=== PATIENT | male | born 1975 | race Caucasian/White ===

== ENCOUNTER → 2016-06-15 | Day surgery (SDC) | payer BC, OTHER ==
[2016-06-15] VITALS (13 sets, daily range): BP systolic 92–138; BP diastolic 42–79
[~2016-06-15] VITALS: Ht 182.9 cm; Wt 88.5 kg
[~2016-06-15] MED LIST: Alfentanil 2ml Inj ONE; Atropine Inj 1mg/10ml Syr IV PRN; Bacitracin 50000 Units Vial ONE; Bupivacaine w/Epi 0.5% 30ml Vial INJ ONE; D5 1/2NS 1,000 ML IV SCH; Dexamethasone 4mg/ml vial ONE; DiphenhydrAMINE 50mg/ml Inj IVP PRN; GENVOYA TABLET1 EACH PO; HYDROmorphone 1mg/ml Carpuject SUBQ PRN; HYZAAR 100-12.1 EACH ORAL; Hydromorphone 0.5mg/0.5ml inj IVP PRN; Ketorolac 30mg Inj IV PRN; Ketorolac 60mg Inj IV PRN; LORazepam Inj 2mg/ml 1ml IV PRN; LR 1000ml 1,000 ML IVLG SCH; LR 1000ml ONE; Labetalol 5mg/ml 20ml vial IV PRN; Lidocaine 1% MPF 10mg/ml 5ml ONE; Meperidine 25mg/ml Inj IV PRN; Metoclopramide 10mg/2ml Inj IVP PRN; Midazolam 2mg/2ml Inj IVP PRN; Midazolam 2mg/2ml Inj ONE; NS Irrig 1000ml ONE; Norco 5mg/325mg tab ORAL PRN; Norco 7.5mg/325mg tab ORAL PRN; Oxycodone/Acetaminophen 5-325 ORAL PRN; Propofol 10mg/ml 20ml IV ONE; Ropivacaine 5mg/ml Vial 20ml INJ ONE; Sterile Water Irrig 1000ml IRRIG ONE; Tylenol #3 tab (300mg/30mg) ORAL PRN; ceFAZolin 1gm/50ml Premix 50 ML IV ONE; celeBREX 200mg Cap **SURGERY PATIENTS ONLY ORAL ONE; fentaNYL 100 mcg/2 mL IV PRN; oxyCONTIN 20mg tab ORAL ONE
--- NOTE | 2016-06-15 07:07 | Pre-Procedure Note/Attestation ---
Pre-Procedure Note/Attestation Complete Prior to Procedure Planned Procedure: right Procedure Narrative: rt elbow removal of olecranon foreign body and bursectomy Indications for Procedure Pre-Operative Diagnosis: rt elbow olecranon bursitis and foreign body Attestation I attest that I discussed the nature of the procedure; its benefits; risks and complications; and alternatives (and the risks and benefits of such alternatives ), prior to the procedure, with the patient (or the patient's legal sales service representative). I attest that, if there was a reasonable possibility of needing a blood transfusion, the patient (or the patient's legal sales service representative) was given the [facility] standardized written summary, pursuant to the Lucas Donna Blood Safety Act ([place] Health and Safety Code # 1645, as amended). I attest that I re-evaluated the patient just prior to the surgery and that there has been no change in the patient's H&P, except as documented below: none MART GAR Jun 15, 2016 07:07
--- NOTE | 2016-06-15 09:25 | Anethesia Preoperative Eval ---
Anesthesia Pre-op PMH/ROS General Date of Evaluation: Jun 15, 2016 Time of Evaluation: 10:46 Anesthesiologist: Harmony ASA Score: ASA 3 Mallampati Score Class I : Soft palate, uvula, fauces, pillars visible Class II: Soft palate, uvula, fauces visible Class III: Soft palate, base of uvula visible Class IV: Only hard plate visible Mallampati Classification: Class II Surgeon: Yohana Diagnosis: R Elbow Foreign Body Surgical Procedure: R Bursectomy, Resection of Foriegn Body Anesthesia History: none Family History: no anesthesia problems Allergies: Coded Allergies: No Known Allergies (Unverified , 06/14/16) Medications: see eMAR Past Medical History Cardiovascular: Reports: HTN Hematology/Immune: Reports: other - HIV Anesthesia Pre-op Phys. Exam Physician Exam Last Vital Signs Date Time Temp Pulse Resp B/P Pulse Ox O2 Delivery O2 Flow Rate FiO2 06/15/16 09:02 98.6 69 18 136/79 98 Room Air Constitutional: NAD Neurologic: CN 2-12 intact Cardiovascular: RRR Respiratory: CTA Gastrointestinal: S/NT/ND Airway Exam Mallampati Score: Class II MO: full ROM: full Teeth: intact Anesthesia Pre-op A/P Risk Assessment & Plan Assessment: ASA 3 Plan: GA, BIS Status Change Before Surgery: No Pre-Antibiotics Dru Grams Ancef IV Given Within 1 Hr of Incision: Yes Time Given: 11:01 Fidel Antunez MD Jun 15, 2016 09:25
--- NOTE | 2016-06-15 09:27 | Immediate Post-Op Evaluation ---
Immediate Post-Op Evalulation Immediate Post-Op Evalulation Procedure: R Bursectomy, Resection of Foriegn Body Date of Evaluation: Jun 15, 2016 Time of Evaluation: 12:24 IV Fluids: 1000 LR Blood Products: 0 Estimated Blood Loss: 5 Urinary Output: 0 Blood Pressure Systolic: 98 Blood Pressure Diastolic: 49 Pulse Rate: 69 Respiratory Rate: 16 O2 Sat by Pulse Oximetry: 98 Temperature (Fahrenheit): 97.4 Pain Score (1-10): 2 Nausea: No Vomiting: No Complications 0 Patient Status: awake, reacts, patent, none Hydration Status: adequate Dru Grams Ancef IV Given Within 1 Hr of Incision: Yes Time Given: 11:01 Fdiel Antunez MD Jun 15, 2016 09:27
--- NOTE | 2016-06-15 09:28 | 48 Hour Post Anesthesia Eval ---
Post Anesthesia Evaluation Procedure: R Bursectomy, Resection of Foriegn Body Date of Evaluation: Jun 15, 2016 Time of Evaluation: 14:41 Blood Pressure Systolic: 126 0: 78 Pulse Rate: 67 Respiratory Rate: 18 Temperature (Fahrenheit): 98.2 O2 Sat by Pulse Oximetry: 99 Airway: patent Nausea: No Vomiting: No Pain Intensity: 2 Hydration Status: adequate Cardiopulmonary Status: Stable Mental Status/LOC: patient returned to baseline Follow-up Care/Observations: 0 Post-Anesthesia Complications: 0 Follow-up care needed: ready to discharge Fidel Antunez MD Jun 15, 2016 09:27
--- NOTE | 2016-06-15 11:05 | Brief Operative Note ---
Immediate Post Operative Note Operative Note Chief Complaint: rt elbow pain Pre-op Diagnosis: rt elbow olecranon bursitis and foreign body Procedure: rt elbow resection of foreign body and bursectomy Post-op Diagnosis: same as pre-op Findings: consistent w/pre-op dx studies Surgeon: md rey [place] Clerk: heavenly fox Anesthesiologist: md marine Anesthesia: general Specimen: yes Complications: none Condition: stable Estimated Blood Loss: minimal Drains: none Implant(s) used?: No AARON FOX Jun 15, 2016 11:05
--- NOTE | 2016-06-15 22:39 | Operative Note - Dictated ---
DATE OF OPERATION: 06/15/2016 PREOPERATIVE DIAGNOSES: 1. Right elbow inflamed olecranon bursa. 2. Right elbow small foreign body at the subcutaneous tissue contributing to olecranon bursitis. POSTOPERATIVE DIAGNOSES: 1. Right elbow inflamed olecranon bursa. 2. Right elbow small foreign body at the subcutaneous tissue contributing to olecranon bursitis. PROCEDURE: 1. Right elbow resection of inflamed olecranon bursa with culture and sensitivity sent to pathology. 2. Right elbow resection of small loose metallic/bony pieces (foreign body). SURGEON: Roberto Muller M.D. BSW: Ewelina Lopes PA-C. ANESTHESIOLOGIST: Fidel Antunez M.D. ANESTHESIA: LMA anesthesia. ESTIMATED BLOOD LOSS: Less than 20 mL. TOURNIQUET TIME: 30 minutes. COMPLICATIONS: None. BRIEF HISTORY: The patient is a pleasant 40-year-old gentleman, who has sustained an injury to his right elbow. On x-ray, there was a radiodense small spicule that was seen on the subcutaneous tissue. This was initially treated nonoperatively. However, the patient started developing olecranon bursitis over that area from minimal activity. After full discussion of risks, benefits of surgery and complications including infection, continued bursitis, continued swelling, continued pain, continued presence of spicule of foreign body because it is so small and cannot be found in the soft tissue, possible need for further surgery, scar sensitivity, and other unforeseen complications including infection, bleeding, neurovascular complication, he opted for surgical treatment as described above. OPERATIVE PROCEDURE: The patient was brought to the operating table and was placed supine. All pressure points were well padded. Palpation was made to find any foreign body over the right elbow and this was marked. The general LMA anesthesia was induced. The right arm was prepped and draped in usual sterile fashion. It was exsanguinated and tourniquet was inflated to 275 mmHg. An incision was made over the olecranon bursa and copious amount of clear fluid was removed. Culture and sensitivity was undertaken. This was sent to the pathology and laboratory for culture and sensitivity. Subsequently, complete bursectomy of the elbow was performed. This was performed, tissue was saved and evaluation was made to see if there are any foreign bodies. Furthermore, subcutaneous dissection was performed as the foreign body appeared to be more in the subcutaneous area right over the incision area. This was completely performed and inflamed tissue was removed. As this was a very small spicule of foreign body, it was felt that the foreign body came out with the soft tissue and it was engulfed in the soft tissue. A separate distinct foreign body was not seen. At this point, image intensifier was brought in, using Fluorocon multiple images both internal and external rotation and AP and lateral were taken to see if there is any foreign body or loose fragment could be seen. This was not seen on image intensifier. The negative of the image intensifier (x-ray appearance with bone appearing white) were also taken both in internal and external rotation, lateral and AP and there was no evidence of any loose fragments or foreign body that could be seen, therefore, it was concluded that the foreign body was removed with the soft tissue that was resected. Curetting was performed over the area, which is one more time just to make sure there are no other foreign bodies. X-rays were again obtained. There was no evidence of foreign body after curetting. Wounds were thoroughly irrigated using copious amount of fluid. The subcutaneous tissue was closed in 2-0 Vicryl suture and skin was closed using 3-0 nylon interrupted horizontal mattress suture. Compressive dressing was applied. The patient tolerated the procedure well without complication and was taken to the recovery room in stable condition. Roberto Muller M.D. DR: ALEJANDRA JOB#: [id number] CC:
--- NOTE | 2016-06-22 14:10 | Diagnostic Imaging Report ---
Indications: Right elbow pain, foreign body removal Technique: The procedure including fluoroscopy performed by Dr. Delaney. Portable intraoperative AP and lateral film images of the elbow performed. Additional spot film image labeled "right elbow specimen" also performed. Findings: Comparison: None Final image demonstrates a small amount of gas in the subcutaneous soft tissues overlying the dorsal aspect of the ulnar olecranon process. No foreign body on this image. Specimen radiograph demonstrates several small multilobulated density is not further characterizable. Impression: Surgical changes as described
== END | disposition home or self-care (01) ==
LOC: SDS 08:16
DX: M70.21 Olecranon bursitis, right elbow (principal); M79.5 Residual foreign body in soft tissue; I10 Essential (primary) hypertension
CPT/HCPCS: 24105; 24200; 73070; 76001; 87070; 87075; 87205; J0690; J1100; J2250; J2405; J2704; J3490; J7120; 94003; 94150